=== PATIENT | female | born 1955 | race Caucasian/White ===

== ENCOUNTER 2016-03-27 17:09 | Emergency (ER) | payer MEDICARE ==
[2016-03-27 17:43] VITALS: BMI 44.6
--- NOTE | 2016-03-27 19:28 | EDPRACDOC ---
- General Chief Complaint: Fall Stated Complaint: FALL Time Seen by Provider: 03/27/16 19:11 Information Source: Patient - History of Present Illness Onset: 1 DAY HPI: PT FELL TODAY AND HIT THE BACK OF HER HEAD. THE PT SAID THAT SHE DOES NOT REMEMBER WHAT CAUSED HER TO FALL. PT COULD NOT GET UP AND HER KIDS COULD NOT PICK HER UP, SO THEY CALLED EMS. PT'S ONLY C/O IS THAT HER HEAD HURTS. FAMILY SAID THAT PT DID NOT HAVE A LOC. Pain Severity: Reports: Mild Injuries/Pain Location: Reports: head Reason for Fall: Reports: unknown Loss of Consciousness: no loss of consciousness Associated Symptoms (Fall): Reports: headache Allergies/Adverse Reactions: Allergies NÉSTOR Inhibitors Allergy (Severe, Verified 03/27/16 17:42) See Comments renal failure NSAIDS (Non-Steroidal Anti-Inflamma Allergy (Severe, Verified 03/27/16 17:42) See Comments renal failure codeine [Codeine] Allergy (Intermediate, Verified 03/27/16 17:42) Rash-Generalized hydroxyzine HCl [From Vistaril] Allergy (Unknown, Verified 03/27/16 17:42) Rash-Generalized hydroxyzine pamoate [From Vistaril] Allergy (Unknown, Verified 03/27/16 17:42) Rash-Generalized Penicillins Allergy (Unknown, Verified 03/27/16 17:42) Rash-Generalized tape Allergy (Uncoded 03/27/16 17:42) Itching Home Medications: Ambulatory Orders Fenofibrate Nanocrystallized [Tricor] 145 mg PO DAILY 04/06/12 Ezetimibe [Zetia] 10 mg PO DAILY 07/16/12 Insulin Glargine,Hum.rec.anlog [Lantus] 40 units SQ BID 07/16/12 Cholecalciferol (Vitamin D3) [Vitamin D3 (cholecalciferol)] 5,000 unit PO DAILY 10/01/12 Omeprazole [Prilosec] 20 mg PO BID 04/07/13 Sitagliptin Phosphate [Januvia] 100 mg PO DAILY 04/07/13 Atorvastatin Calcium [Lipitor] 80 mg PO QHS 10/04/13 Ranolazine [Ranexa] 500 mg PO BID #60 ext 10/06/13 Buspirone HCl 15 mg PO TID 02/12/15 Alendronate Sodium [Fosamax] 70 mg PO SANCHEZ 07/20/15 Cyanocobalamin (Vitamin B-12) [Cyanocobalamin Injection] 1,000 mcg IM QMONTH Insulin Aspart [Novolog] 8 - 18 units SQ TIDAC 07/20/15 Isosorbide Mononitrate [Isosorbide Mononitrate ER] 120 mg PO DAILY 07/20/15 Meclizine HCl [Antivert] 25 mg PO Q6H PRN 07/20/15 Metoprolol Succinate [Toprol Xl] 25 mg PO DAILY 07/20/15 Nitroglycerin [Nitrostat] 0.4 mg SL Q5MX3 PRN 07/20/15 Pioglitazone HCl [Actos] 15 mg PO DAILY 07/20/15 Promethazine [Phenergan] 25 mg PO Q6H PRN 07/20/15 Topiramate [Topamax] 200 mg PO QHS 07/20/15 Albuterol Sulfate [Ventolin Hfa] 1 - 2 puff INH Q4H PRN 11/13/15 Budesonide/Formoterol Fumarate [Symbicort 160-4.5 Mcg Inhaler] 2 puff INH BID Bupropion HCl [Bupropion HCl Sr] 100 mg PO DAILY 11/13/15 Furosemide [Lasix] 60 mg PO BID 11/13/15 Pregabalin [Lyrica] 50 mg PO BID 11/13/15 Albuterol/Ipratropium Neb [Duoneb] 3 ml NEB Q6H PRN #120 box 11/16/15 Rivaroxaban [Xarelto] 20 mg PO DAILY 11/22/15 Diazepam [Valium] 2 mg PO TID PRN 11/30/15 Escitalopram Oxalate [Lexapro] 20 mg PO DAILY 11/30/15 Hydrocodone Bit/Acetaminophen [[place] 10-325 Tablet] 1 tab PO Q6H PRN 11/30/15 ED Past Medical History - Patient Medical History Neurological History: Reports: Cerebrovascular Accident (TIA). Denies: Seizures Cardiac History: Reports: Coronary Artery Disease, Atrial Fibrillation, Hypertension, Congestive Heart Failure, Heart Attack, Cardiac Catheterization, Hypercholesterolemia, Syncope. Denies: CABG Respiratory History: Reports: COPD, Chronic Bronchitis, Pulmonary Embolism. Denies: Asthma, Emphysema GI/ History: Reports: Renal Disease (chronic stage 3), Urinary Tract Infection , Gastroesophageal Reflux, Ulcer. Denies: Renal Failure, Kidney Stones Musculoskeletal History: Reports: Arthritis (MULTIPLE JOINTS). Denies: Gout Psychological History: Reports: Depression, Anxiety. Denies: Schizophrenia, Substance Use Disorder Systemic History: Reports: Cancer (ENDOMETRIOSIS), Anemia (pernicious), Diabetes. Denies: Hyperthyroidism, Hypothyroidism Surgical History: Reports: Cholecystectomy, Hysterectomy, Angioplasty, Cardiac Catheterization, Tonsillectomy/Adnoidectomy. Denies: CABG, Hernia Surgery, Other - Family Medical History Reports: Hypertension (MOM, DAD, BROTHER(?)), Diabetes (DAD), Cancer (SISTER), Cardiac Disorders (MOM & DAD). Denies: Stroke - Social Medical History Smoking Status: Never smoker (But she was exposed to secondhand smoke for years. Has been lung ca) Social History: Denies: Substance Use Disorder ETOH: None Substance Abuse: None Lives In: Home EDM Review of Systems - Review of Systems ROS Negative Except as Marked: Yes All systems reviewed and were negative except as marked Neurological: Headache - Physical Exam Constitutional: Alert (Awake), No apparent distress Oriented to: Time, Person, Place Last recorded Vital Signs: Last Vital Signs Temp 97.7 F 03/27/16 17:38 Pulse 58 L 03/27/16 17:38 Resp 22 03/27/16 17:38 BP 176/72 03/27/16 17:38 Pulse Ox 95 03/27/16 17:38 Oxygen Pulse Oxygen Saturation 95 O2 Device Room Air Oxygen Flow Rate Fraction of Inspired Oxygen ( FIO2) - HEENT Head: Tender Eye Exam: Normal (PERRL, EOMI, Sclera white) Oropharynx: Normal (Pharynx:Moist without exudate,Gums-no swelling) ENT EAC: Normal TMJ: Normal Nose: No Symptoms Reported (septum midline) Neck: Normal (FROM, trachea at midline) - Respiratory/Cardiovascular Respiratory: Normal - CTA (BBS clear to auscultation without adventitious sounds ) Cardiovascular: Bradycardia - GI Auscultation: Normal (NABS) Palpation: Normal (Soft,No rebound or guarding, non distended) Tenderness: Non tender Moya's Sign: Negative - Musculoskeletal Back: Normal Extremities: Pedal Edema - Integumentary Skin: Normal, Warm, Dry Lymphatics: Normal (no adenopathy) - Neurologic Memory Impaired: Normal Motor Function: Normal (Normal tone, Pulses 2+ No cyanosis or edema, FROM) Cranial Nerve: Normal (CN II-X11 intact sensation, strength 5/5) Cerebellar: Normal Mood Description: Normal Thought: Coherent Perception: Normal - Re-evaluation Re-evaluation 1 Re-evaluation Time: 21:14 (IMPROVED) - Results 03/27/16 20:10 03/27/16 20:10 - EKG EKG #1 EKG Time: 19:31 -: Yes EKG interpreted by me Rate: bpm: 62 [place]: Normal Rhythm: NSR Block: None Hypertrophy: None ST: Normal - Diagnostic Imaging Chest Image interpreted by: Radiologist Normal chest radiograph. Head Image interpreted by: Radiologist Atrophy with small vessel disease, unchanged from prior study. No intracranial mass, hemorrhage, or extra-axial fluid collection. No acute infarct evident. Decision Time to Discharge: 21:14 - Departure Yes I personally saw and evaluated the patient. Disposition: Home Condition: Fair Final Diagnosis: Accidental fall, Head contusion Instructions: RICE: Routine Care for Injuries Education/Counseling Given To: Patient Education/Counseling Given Regarding: Diagnosis, Treatment, Follow Up Additional Instructions: F/U WITH PCP
--- NOTE | 2016-03-27 19:31 | DIRPT ---
CLINICAL DATA: Chest pain, presumed cardiac EXAM: PORTABLE CHEST 1 VIEW COMPARISON: 11/22/2015 FINDINGS: Normal mediastinum and cardiac silhouette. Normal pulmonary vasculature. No evidence of effusion, infiltrate, or pneumothorax. No acute bony abnormality. IMPRESSION: Normal chest radiograph. Electronically Signed By: Hayes Gaviria M.D. On: 03/27/2016 19:29
[2016-03-27 20:33] LABS: BLOOD UREA NITROGEN 28 MG/DL (7-17); CALC CORRECTED 9.1 MG/DL (8.4-10.2); CALCULATED OSMOLALITY 273 MOs/Kg (270-290); CHLORIDE 104 mEq/L (98-107); GLUCOSE 84 MG/DL (70-99); SODIUM LEVEL 139 mEq/L (137-146); TOTAL PROTEIN 7.3 G/DL (6.3-8.2)
[2016-03-27 20:36] LABS: AUTOMATED BASOPHIL 0.5 % (0-2); AUTOMATED EOSINOPHIL 1.6 % (0-5); AUTOMATED LYMPH 45.3 % (17-44); AUTOMATED MONOCYTE 8.7 % (3-10); AUTOMATED NEUTROPHIL 43.9 % (45-76); MPV 10.9 fL (7.4-10.4)
--- NOTE | 2016-03-27 20:41 | DIRPT ---
CLINICAL DATA: Pain following fall ; dizziness EXAM: CT HEAD WITHOUT CONTRAST TECHNIQUE: Contiguous axial images were obtained from the base of the skull through the vertex without intravenous contrast. COMPARISON: July 20, 2015 FINDINGS: There is mild diffuse atrophy. There is no intracranial mass hemorrhage, extra-axial fluid collection, or midline shift. There is stable small vessel disease in the centra semiovale bilaterally. There is no new de dios-white compartment lesion. No acute infarct evident. The bony calvarium appears intact. The mastoid air cells are clear. No intraorbital lesions are identified. IMPRESSION: Atrophy with small vessel disease, unchanged from prior study. No intracranial mass, hemorrhage, or extra-axial fluid collection. No acute infarct evident. Electronically Signed By: Davis Kapoor III, M.D. On: 03/27/2016 20:39
[2016-03-27 20:42] LABS: PARTIAL THROMB. TIME 28.4 SEC (22-35); PT-INR 1.4
[2016-03-27 21:12] LABS: LEUKOCYTES/URINE NEG (NEGATIVE); NITRITE/URINE NEG (NEGATIVE); URINE OCCULT BLOOD NEG (NEG/TRACE); WBC/URINE 0-2 (0-5)
[2016-03-27 21:55] VITALS: BP 151/72; PULSE 64; TEMP 97.4
== END 2016-03-27 21:40 | disposition home or self-care (01) ==
LOC: ED 17:09
DX: S00.93XA Contusion of unspecified part of head, initial encounter (principal); W19.XXXA Unspecified fall, initial encounter; I25.10 Atherosclerotic heart disease of native coronary artery without angina pectoris; I48.91 Unspecified atrial fibrillation; I50.9 Heart failure, unspecified; E78.00 Pure hypercholesterolemia, unspecified; J44.9 Chronic obstructive pulmonary disease, unspecified; I12.9 Hypertensive chronic kidney disease with stage 1 through stage 4 chronic kidney disease, or unspecified chronic kidney disease; N18.3 Chronic kidney disease, stage 3 (moderate); E11.9 Type 2 diabetes mellitus without complications; Z79.01 Long term (current) use of anticoagulants; Z79.899 Other long term (current) drug therapy; Z79.4 Long term (current) use of insulin
CPT/HCPCS: 36415; 70450; 71010; 80053; 81001; 83880; 84484; 85025; 85610; 85730; 93005; 99284

== ENCOUNTER 2016-04-02 19:37 | Inpatient (IN) | payer MEDICARE ==
[2016-04-02] MEDS ORDERED: NS 1,000 ML IV ONE (21:36)
[2016-04-02 21:56] LABS: AUTOMATED BASOPHIL 1.1 % (0-2); AUTOMATED EOSINOPHIL 2.2 % (0-5); AUTOMATED LYMPH 45.4 % (17-44); AUTOMATED MONOCYTE 7.9 % (3-10); AUTOMATED NEUTROPHIL 43.4 % (45-76)
--- NOTE | 2016-04-02 21:56 | DIRPT ---
CLINICAL DATA: Shortness of breath. EXAM: PORTABLE CHEST 1 VIEW COMPARISON: 03/27/2016 FINDINGS: The heart size and mediastinal contours are within normal limits. Both lungs are clear. The visualized skeletal structures are unremarkable. IMPRESSION: No active disease. Electronically Signed By: Leatha Brandt M.D. On: 04/02/2016 21:53
--- NOTE | 2016-04-02 21:57 | EDPRACDOC ---
- General Information Chief Complaint: Altered Mental Status Stated Complaint: ALTERED MENTAL STATUS Time Seen by Provider: 04/02/16 21:30 Information Source: Patient, Family Home Medications: Home Medications Fenofibrate Nanocrystallized [Tricor] 145 mg PO DAILY 04/06/12 Ezetimibe [Zetia] 10 mg PO DAILY 07/16/12 Insulin Glargine,Hum.rec.anlog [Lantus] 50 units SQ BID 07/16/12 Cholecalciferol (Vitamin D3) [Vitamin D3 (cholecalciferol)] 5,000 unit PO DAILY 10/01/12 Omeprazole [Prilosec] 20 mg PO BID 04/07/13 Sitagliptin Phosphate [Januvia] 100 mg PO DAILY 04/07/13 Atorvastatin Calcium [Lipitor] 80 mg PO QHS 10/04/13 Ranolazine [Ranexa] 500 mg PO BID #60 ext 10/06/13 Buspirone HCl 15 mg PO TID 02/12/15 Alendronate Sodium [Fosamax] 70 mg PO SANCHEZ 07/20/15 Cyanocobalamin (Vitamin B-12) [Cyanocobalamin Injection] 1,000 mcg IM QMONTH Insulin Aspart [Novolog] 8 - 18 units SQ TIDAC 07/20/15 Isosorbide Mononitrate [Isosorbide Mononitrate ER] 120 mg PO DAILY 07/20/15 Meclizine HCl [Antivert] 25 mg PO Q6H PRN 07/20/15 Metoprolol Succinate [Toprol Xl] 25 mg PO DAILY 07/20/15 Nitroglycerin [Nitrostat] 0.4 mg SL Q5MX3 PRN 07/20/15 Promethazine [Phenergan] 25 mg PO Q6H PRN 07/20/15 Topiramate [Topamax] 200 mg PO QHS 07/20/15 Budesonide/Formoterol Fumarate [Symbicort 160-4.5 Mcg Inhaler] 2 puff INH BID Bupropion HCl [Bupropion HCl Sr] 100 mg PO DAILY 11/13/15 Furosemide [Lasix] 60 mg PO BID 11/13/15 Pregabalin [Lyrica] 50 mg PO BID 11/13/15 Albuterol/Ipratropium Neb [Duoneb] 3 ml NEB Q6H PRN #120 box 11/16/15 Rivaroxaban [Xarelto] 20 mg PO DAILY 11/22/15 Escitalopram Oxalate [Lexapro] 20 mg PO DAILY 11/30/15 Hydrocodone Bit/Acetaminophen [[place] 10-325 Tablet] 1 tab PO Q6H PRN 11/30/15 Albuterol Sulfate MDI [Proventil HFA] 1 - 2 puff INH Q4-6H PRN 04/02/16 Alprazolam [Xanax] 0.5 mg PO TID 04/02/16 Oxybutynin Chloride 5 mg PO BID 04/02/16 Pregabalin [Lyrica] 25 mg PO BID 04/02/16 Tizanidine HCl [Zanaflex] 4 mg PO BID 04/02/16 Allergies/Adverse Reactions: Allergies Allergy/AdvReac Type Severity Reaction Status Date / Time NÉSTOR Inhibitors Allergy Severe See Verified 03/27/16 17:42 Comments NSAIDS (Non-Steroidal Allergy Severe See Verified 03/27/16 17:42 Anti-Inflamma Comments codeine [Codeine] Allergy Intermediate Rash-Genera Verified 03/27/16 17:42 lized hydroxyzine HCl Allergy Unknown Rash-Genera Verified 03/27/16 17:42 [From Vistaril] lized hydroxyzine pamoate Allergy Unknown Rash-Genera Verified 03/27/16 17:42 [From Vistaril] lized Penicillins Allergy Unknown Rash-Genera Verified 03/27/16 17:42 lized latex Allergy Rash-Genera Uncoded 04/02/16 20:05 lized tape Allergy Itching Uncoded 03/27/16 17:42 - History of Present Illness Onset: today Exact Onset of Symptoms: Unknown Date Symptoms Started: 04/02/16 HPI: PATIENT PRESENTS WITH FAMILY C/O GENERAL FATIGUE AND SLUGGISH APPEARANCE SINCE NOON TODAY. FAMILY NOTES NAUSEA AND VOMITING 2 DAYS AGO. NONE TODAY. NO SOB. NO FEVER. NO DIARRHEA. DENIES TRAUMA. Symptoms began: Gradually Duration: Since Onset Symptoms Currently: Reports: Still Present Altered Quality: Reports: Decreased Alertness, Confusion Altered Severity: Reports: Mild Associated signs and symptoms: Reports: Weakness ED Past Medical History - History Reviewed Yes Nurses notes reviewed and agree except as marked Travel Outside of [place] in the Last 3 Months?: No - Patient Medical History Neurological History: Reports: Cerebrovascular Accident (TIA). Denies: Seizures Cardiac History: Reports: Coronary Artery Disease, Atrial Fibrillation, Hypertension, Congestive Heart Failure, Heart Attack (2 stents), Cardiac Catheterization, Hypercholesterolemia, Syncope. Denies: CABG Respiratory History: Reports: Asthma, COPD, Chronic Bronchitis, Pulmonary Embolism. Denies: Emphysema GI/ History: Reports: Renal Disease (chronic stage 3), Urinary Tract Infection , Gastroesophageal Reflux, Ulcer. Denies: Renal Failure, Kidney Stones Musculoskeletal History: Reports: Arthritis. Denies: Gout Psychological History: Reports: Depression, Anxiety. Denies: Schizophrenia, Substance Use Disorder Systemic History: Reports: Anemia (pernicious), Diabetes. Denies: Cancer, Hyperthyroidism, Hypothyroidism Surgical History: Reports: Appendectomy, Cholecystectomy, Hysterectomy, Angioplasty, Cardiac Catheterization, Tonsillectomy/Adnoidectomy. Denies: CABG , Hernia Surgery, Other - Family Medical History Reports: Hypertension (MOM, DAD, BROTHER(?)), Diabetes (DAD), Cancer (SISTER), Cardiac Disorders (MOM & DAD). Denies: Stroke - Social Medical History Smoking Status: Never smoker (But she was exposed to secondhand smoke for years. Has been lung ca) Social History: Denies: Substance Use Disorder Lives With: Family Lives In: Home EDM Review of Systems - Review of Systems ROS Negative Except as Marked: Yes All systems reviewed and were negative except as marked Constitutional: Fatigue. negative: Chills, Fever, Loss of Appetite, Weakness Eyes: No Symptoms Reported. negative: Redness, Blurred Vision, Double Vision, Discharge, Pain, Light Sensitive, Photophobia Ears: No Symptoms Reported. negative: Pain, Hearing Loss, Drainage, Ear Pulling Throat: No Symptoms Reported. negative: Pain, Swelling Nose: No Symptoms Reported. negative: Congestion, Bleeding, Discharge, Injection, Swelling, Deformity, Ecchymosis, Tender, Abrasion, Laceration Mouth: No Symptoms Reported. negative: Pain, Drooling Respiratory: No Symptoms Reported. negative: Cough, Brassy Cough, Barky Cough, Shortness of Breath, Wheezing, Hemoptysis Cardiovascular: No Symptoms Reported. negative: Chest Pain, Palpitations, Syncope, Edema, Orthopnea, PND, Skin Mottling, Cyanosis Gastrointestinal: No Symptoms Reported. negative: Pain, Constipation, Nausea, Vomiting, Diarrhea, Melena, Formula Intolerance Genitourinary: No Symptoms Reported. negative: Dysuria, Hematuria, Frequency, Discharge, Bleeding, Testicular Pain, Neurological: No Symptoms Reported. negative: Headache, Dizziness, Seizure, Numbness, Weakness, Speech Difficulty, Gait Difficulty Musculoskeletal: No Symptoms Reported. negative: Neck, Chestwall, Ribs, Back, Shoulder, Arm, Elbow, Forearm, Wrist, Hand, Pelvis, Hip, Femur, Knee, Leg, Ankle , Foot Integumentary: No Symptoms Reported. negative: Itching, Rash, Bruising, Wound Allergic/Immunologic: No Symptoms Reported. negative: Hives, Itching Hematologic: No Symptoms Reported. negative: Lymphadenopathy, Easy Bruising, Easy Bleeding Endocrine: No Symptoms Reported. negative: Weight Gain, Weight Loss Psychiatric: No Symptoms Reported. negative: Anxiety, Depression, Hallucinations, Insomnia, Suicidal - Physical Exam Constitutional: Alert (Awake), Confused (SLUGGISH TO RESPOND) Oriented to: Person, Place Last recorded Vital Signs: Last Vital Signs Temp 97.3 F L 04/02/16 19:55 Pulse 82 04/02/16 19:55 Resp 20 04/02/16 19:55 BP 127/85 04/02/16 19:55 Pulse Ox 96 04/02/16 19:55 Oxygen Pulse Oxygen Saturation 96 O2 Device Room Air Oxygen Flow Rate Fraction of Inspired Oxygen ( FIO2) - HEENT Head: Normal ( normocephalic) Eye Exam: Normal (PERRL, EOMI, Sclera white) Oropharynx: Normal (Pharynx:Moist without exudate,Gums-no swelling) Tympanic Membrane: Normal ENT EAC: Normal TMJ: Normal Nose: No Symptoms Reported (septum midline) Neck: Normal (FROM, trachea at midline) - Respiratory/Cardiovascular Respiratory: Normal - CTA (BBS clear to auscultation without adventitious sounds ) Cardiovascular: Normal (RRR without murmur, gallop or rub) - GI Auscultation: Normal (NABS) Palpation: Normal (Soft,No rebound or guarding, non distended) Tenderness: Non tender Moya's Sign: Negative - Bladder: Normal - Musculoskeletal Back: Normal (Non-Tender) Extremities: Normal (Normal tone, Pulses 2+ No cyanosis or edema, FROM) - Integumentary Skin: Normal, Warm, Dry Lymphatics: Normal (no adenopathy) - Neurologic Memory Impaired: Unable to Test Motor Function: Normal (Normal tone, Pulses 2+ No cyanosis or edema, FROM) Cranial Nerve: Normal (CN II-X11 intact sensation, strength 5/5) Cerebellar: Normal Mood Description: Flat Perception: Normal - Results 04/02/16 21:35 04/02/16 21:24 POC Capillary Glucose 92 MG/DL (70-99) 04/02/16 19:55 Lab Results 04/02/16 19:55 POC Capillary Glucose 92 - EKG EKG #1 EKG Time: 21:51 -: Yes EKG interpreted by me Rate: bpm: 67 [place]: Normal Rhythm: NSR Block: None Hypertrophy: None ST: Normal - Departure Yes I personally saw and evaluated the patient. Disposition: Admit IP To This Hospital Condition: Fair Final Diagnosis: Dehydration, Acute delirium UTI (urinary tract infection) Qualifiers: Urinary tract infection type: acute cystitis Hematuria presence: without hematuria Qualified Code(s): N30.00 - Acute cystitis without hematuria Instructions: Urinary Tract Infection in Women (ED), Dysuria Education/Counseling Given To: Patient Education/Counseling Given Regarding: Diagnosis, Treatment, Prognosis Referrals: Matti Arellano MD [Primary Care Provider] - One Week Decision to Admit Time: 23:04 Decision to admit date: 04/02/16 Decision to admit: from ED - Physician Consulted Hospitalist Time Called: 23:04 Provider Called: Jake Houser Time Chief Technologist Returned Call: 23:04 NIH Stroke Scale Initial Evaluation Level of Consciousness: Arousable LOC- Question: Answers Both Correctly LOC Commands: Both Task Correctly Best Gaze: Normal Visual: No Visual Loss Facial Palsy: Normal Movement Motor Arm LEFT: No Drift Motor Arm RIGHT: No Drift Motor Leg LEFT: No Drift Motor Leg RIGHT: No Drift Limb Ataxia: Absent Sensory: Normal Best Language: No Aphasia Dysarthria: Normal Extinction and Inattention: No Abnormality (Neglect) Score: 1out of42
[2016-04-02 22:10] LABS: BLOOD UREA NITROGEN 19 MG/DL (7-17); CALCIUM 9.7 MG/DL (8.4-10.2); CALCULATED OSMOLALITY 271 MOs/Kg (270-290); CHLORIDE 106 mEq/L (98-107); GLUCOSE 100 MG/DL (70-99); PARTIAL THROMB. TIME 18.2 SEC (22-35); PT-INR 1.1; SODIUM LEVEL 140 mEq/L (137-146)
[2016-04-02 22:16] LABS: ALL NEG? NO
[2016-04-02 22:24] LABS: MDMA* NEG (NEGATIVE); METHAMPHETAMINES NEG (NEGATIVE); OXYCODONE NEG (NEGATIVE)
[2016-04-02 22:33] LABS: LEUKOCYTES/URINE TRACE (NEGATIVE); NITRITE/URINE NEG (NEGATIVE); URINE OCCULT BLOOD NEG (NEG/TRACE)
--- NOTE | 2016-04-02 22:34 | DIRPT ---
CLINICAL DATA: 60-year-old female with altered mental status go EXAM: CT HEAD WITHOUT CONTRAST TECHNIQUE: Contiguous axial images were obtained from the base of the skull through the vertex without intravenous contrast. COMPARISON: Head CT dated 03/27/2016 FINDINGS: The ventricles are dilated and the sulci are prominent compatible with age-related atrophy. Periventricular and deep white matter hypodensities represent chronic microvascular ischemic changes. There is no intracranial hemorrhage. No mass effect or midline shift identified. The visualized paranasal sinuses and mastoid air cells are well aerated. The calvarium is intact. IMPRESSION: No acute intracranial hemorrhage. Age-related atrophy and chronic microvascular ischemic disease. If symptoms persist and there are no contraindications, MRI may provide better evaluation if clinically indicated. Electronically Signed By: Josh Courtney M.D. On: 04/02/2016 22:31
[2016-04-02] MEDS ORDERED: OXYCODONE HCL 5 MG TABLET PO ONE (23:02)
[2016-04-02] MEDS ORDERED: Levofloxacin 750 mg/150 ml D5W 750 MG/150 ML RTU IV ONE (23:05)
--- NOTE | 2016-04-02 23:39 | HISTPHYS ---
- Chief Complaint altered mental status - History of Present Illness PRIMARY CARE PROVIDER: Dr. Arellano HPI: The patient is a 60 yo woman with multiple medical problems including coronary artery disease, pulmonary embolism (with IVC filter now in place), right sided heart failure, diabetes mellitus, depression, who presents with altered mental status. The patient states she cannot remember why she is here. The patient is having trouble providing history, so most of the history is provided by her son and daughter in law. Lately has been staying in bed x 2 or more days. She does get in moods and suffers from depression. She is not eating and not taking her medication. Last food was yesterday morning when she ate a mayonnaise sandwich and some chips. At first they thought she was just having worsening depression, but then today, she had new symptoms she has never had before. She woke up this afternoon and did not know where she was or who anybody was. She did not know her son or daughter in law. She says she sees Balwinder, her who . She has become confused and disoriented with hallucinations. Onset: Some symptoms started 2 days ago but the confusion and hallucinations started today. Duration: intermittent. Location: generalized. Character: not recognizing people she knows. Disorientation. Hallucination. Alleviated by: Nothing. Exacerbated by: Nothing. Associated Symptoms: Decreased appetite and decreased PO intake. No fever or chills. Has baseline shortness of breath but not worse than usual. Hypersomnolence. Fatigue. Denies suicidal ideation. Treatments: none at home except usual medications. She has not been taking her medications. - Medical History Cardiac History: Reports: Coronary Artery Disease, Atrial Fibrillation, Hypertension, Congestive Heart Failure, Heart Attack (2 stents), Cardiac Catheterization, Hypercholesterolemia, Syncope. Denies: CABG Respiratory History: Reports: Asthma, COPD, Chronic Bronchitis, Pulmonary Embolism (November 2015) GI/ History: Reports: Renal Disease (chronic stage 3), Urinary Tract Infection , Gastroesophageal Reflux, Ulcer Musculoskeletal History: Reports: Arthritis Systemic History: Reports: Anemia (pernicious), Diabetes Neurological History: Reports: Cerebrovascular Accident (TIA). Denies: Seizures Psychological History: Reports: Depression, Anxiety - Surgical History Reports: Appendectomy, Cholecystectomy, Hysterectomy, Angioplasty, Cardiac Catheterization, Tonsillectomy/Adnoidectomy, Other (IVC filter around November 2015) - Medictions/Allergies Allergies NÉSTOR Inhibitors Allergy (Severe, Verified 03/27/16 17:42) See Comments renal failure NSAIDS (Non-Steroidal Anti-Inflamma Allergy (Severe, Verified 03/27/16 17:42) See Comments renal failure codeine [Codeine] Allergy (Intermediate, Verified 03/27/16 17:42) Rash-Generalized hydroxyzine HCl [From Vistaril] Allergy (Unknown, Verified 03/27/16 17:42) Rash-Generalized hydroxyzine pamoate [From Vistaril] Allergy (Unknown, Verified 03/27/16 17:42) Rash-Generalized Penicillins Allergy (Unknown, Verified 03/27/16 17:42) Rash-Generalized latex Allergy (Uncoded 04/02/16 20:05) Rash-Generalized tape Allergy (Uncoded 03/27/16 17:42) Itching Current Medication List: Reviewed Home Medications Fenofibrate Nanocrystallized [Tricor] 145 mg PO DAILY 04/06/12 Ezetimibe [Zetia] 10 mg PO DAILY 07/16/12 Insulin Glargine,Hum.rec.anlog [Lantus] 50 units SQ BID 07/16/12 Cholecalciferol (Vitamin D3) [Vitamin D3 (cholecalciferol)] 5,000 unit PO DAILY 10/01/12 Omeprazole [Prilosec] 20 mg PO BID 04/07/13 Sitagliptin Phosphate [Januvia] 100 mg PO DAILY 04/07/13 Atorvastatin Calcium [Lipitor] 80 mg PO QHS 10/04/13 Ranolazine [Ranexa] 500 mg PO BID #60 ext 10/06/13 Buspirone HCl 15 mg PO TID 02/12/15 Alendronate Sodium [Fosamax] 70 mg PO SANCHEZ 07/20/15 Cyanocobalamin (Vitamin B-12) [Cyanocobalamin Injection] 1,000 mcg IM QMONTH Insulin Aspart [Novolog] 8 - 18 units SQ TIDAC 07/20/15 Isosorbide Mononitrate [Isosorbide Mononitrate ER] 120 mg PO DAILY 07/20/15 Meclizine HCl [Antivert] 25 mg PO Q6H PRN 07/20/15 Metoprolol Succinate [Toprol Xl] 25 mg PO DAILY 07/20/15 Nitroglycerin [Nitrostat] 0.4 mg SL Q5MX3 PRN 07/20/15 Promethazine [Phenergan] 25 mg PO Q6H PRN 07/20/15 Topiramate [Topamax] 200 mg PO QHS 07/20/15 Budesonide/Formoterol Fumarate [Symbicort 160-4.5 Mcg Inhaler] 2 puff INH BID Bupropion HCl [Bupropion HCl Sr] 100 mg PO DAILY 11/13/15 Furosemide [Lasix] 60 mg PO BID 11/13/15 Pregabalin [Lyrica] 50 mg PO BID 11/13/15 Albuterol/Ipratropium Neb [Duoneb] 3 ml NEB Q6H PRN #120 box 11/16/15 Rivaroxaban [Xarelto] 20 mg PO DAILY 11/22/15 Escitalopram Oxalate [Lexapro] 20 mg PO DAILY 11/30/15 Hydrocodone Bit/Acetaminophen [[place] 10-325 Tablet] 1 tab PO Q6H PRN 11/30/15 Albuterol Sulfate MDI [Proventil HFA] 1 - 2 puff INH Q4-6H PRN 04/02/16 Alprazolam [Xanax] 0.5 mg PO TID 04/02/16 Oxybutynin Chloride 5 mg PO BID 04/02/16 Pregabalin [Lyrica] 25 mg PO BID 04/02/16 Tizanidine HCl [Zanaflex] 4 mg PO BID 04/02/16 - Family History Reports: Hypertension (MOM, DAD, BROTHER(?)), Diabetes (DAD), Cancer (SISTER), Cardiac Disorders (MOM & DAD). Denies: Stroke - Social History Smoking Status: Never smoker (But she was exposed to secondhand smoke for years. ) Social History: Denies: Alcohol Use, Substance Use Disorder - Review of Systems GENERAL: No Fever, chills, or diaphoresis. Positive for fatigue/malaise. HEENT: No nasal discharge or bleeding. No throat pain or swelling. No eye pain or eye redness. RESPIRATORY: No new cough, wheezing. Has baseline shortness of breath but not worse than usual. CARDIOVASCULAR: No chest pain or palpitations. GI: No abdominal pain, nausea, vomiting, diarrhea, constipation, or bloody stool. NEUROLOGICAL: No headache or focal weakness. INTEGUMENT: no rashes, itching, or lesions. LYMPHATIC SYSTEM: no lymph node swelling or pain. MUSCULOSKELETAL: no new pain or joint swelling. GENITOURINARY: No dysuria or hematuria. ENDOCRINE: No polyuria or polydipsia. HEME: No chronic anemia, bleeding, or easy bruising. - Physical Exam Vital Signs: Initial Vitals Temperature 97.3 F L 04/02/16 19:55 Pulse Rate 82 04/02/16 19:55 Respiratory Rate 20 04/02/16 19:55 Blood Pressure 127/85 04/02/16 19:55 Pulse Oxygen Saturation 96 04/02/16 19:55 Weight: 99 kg Height: 4'11" BMI: 44 - Other Exam Other Exam Findings: GENERAL: Ill-appearing, morbidly obese, in acute distress. HEENT: Normocephalic, atraumatic; pupils equal and round. Nares patent, without discharge or bleeding. No oropharyngeal lesions or erythema. Mucous membranes are dry. NECK: is supple, no masses, trachea midline. Large neck circumference. RESPIRATORY: Clear to auscultation bilaterally. Chest wall movements are symmetric. No use of accessory muscles to breathe. No wheezing, rales, rhonchi. Decreased breath sounds in the bases bilaterally. CARDIOVASCULAR: Normal S1, S2. No murmurs, rubs, or gallops. PMI non-displaced. Carotids: no carotid bruits. No bradycardia or tachycardia. DP pulses 2+ bilaterally. GI: soft, nontender, non-distended, normal active bowel sounds. No hepatosplenomegaly. INTEGUMENT: Clean, dry, and intact. No rashes. No lesions. MUSCULOSKELETAL: Moving all extremities. No cyanosis. No clubbing. Edema: trace pitting lower extremity edema bilaterally. Also bilateral lymphedema. NEUROLOGICAL: Cranial nerves 2-12 grossly intact. Motor 4/5 throughout upper extremities and 3-4/5 in lower extremities, symmetric. Reflexes: 2+ bilaterally. Babinski: toes nonreactive bilaterally. Intact Finger to nose. Sensory grossly intact to light touch. Intact rapid alternating movements bilaterally. No pronator drift. PSYCHIATRIC: Oriented to person and place. Not oriented to month, year, date. Flat affect. Confused. LYMPHATIC: No cervical lymphadenopathy. No supraclavicular lymphadenopathy. - Lab Results Laboratory Results - last 24 hr 04/02/16 04/02/16 04/02/16 19:55 21:24 21:24 WBC RBC Hgb Hct MCV MCH MCHC RDW Plt Count MPV Neut % (Auto) Lymph % (Auto) [place] % (Auto) Eos % (Auto) Baso % (Auto) Absolute Neuts (auto) Absolute Lymphs (auto) ESR PT 11.2 INR 1.1 APTT 18.2 L Sodium 140 Potassium 3.8 Chloride 106 Carbon Dioxide 24 Anion Gap 14 BUN 19 H Creatinine 1.30 H Estimated GFR (MDRD) 42 L Glucose 100 H POC Capillary Glucose 92 Calculated Osmolality 271 Calcium 9.7 Total Bilirubin 1.1 AST 38 H ALT 37 Alkaline Phosphatase 49 L Troponin I < 0.01 Total Protein 7.0 Albumin 4.0 TSH Urine Color Urine Clarity Urine pH Ur Specific [place] Urine Protein Urine Glucose (UA) Urine Ketones Urine Occult Blood Urine Nitrite Urine Bilirubin Urine Urobilinogen Ur Leukocyte Esterase Urine WBC Ur Epithelial Cells Urine Mucus Urine Opiates Screen Ur Oxycodone Screen Urine Methadone Screen Ur Barbiturates Screen Ur Tricyclics Screen Ur Phencyclidine Scrn Ur Amphetamines Screen U Methamphetamines Scrn Urine MDMA Screen U Benzodiazepines Scrn Urine Cocaine Screen Ur THC Screen 04/02/16 04/02/16 04/02/16 21:35 22:00 22:00 WBC 6.9 RBC 3.69 L Hgb 12.1 Hct 36.3 MCV 98 MCH 32.7 H MCHC 33.3 RDW 16.7 H Plt Count 151 MPV 11.0 H Neut % (Auto) 43.4 L Lymph % (Auto) 45.4 H [place] % (Auto) 7.9 Eos % (Auto) 2.2 Baso % (Auto) 1.1 Absolute Neuts (auto) 2.97 Absolute Lymphs (auto) 3.11 ESR PT INR APTT Sodium Potassium Chloride Carbon Dioxide Anion Gap BUN Creatinine Estimated GFR (MDRD) Glucose POC Capillary Glucose Calculated Osmolality Calcium Total Bilirubin AST ALT Alkaline Phosphatase Troponin I Total Protein Albumin TSH Urine Color Yellow Urine Clarity Sl cldy Urine pH 6.0 Ur Specific [place] 1.025 Urine Protein Neg Urine Glucose (UA) Neg Urine Ketones 1+ H Urine Occult Blood Neg Urine Nitrite Neg Urine Bilirubin Neg Urine Urobilinogen <2.0 Ur Leukocyte Esterase Trace H Urine WBC 5-10 H Ur Epithelial Cells 2+ Urine Mucus Mod H Urine Opiates Screen *positive* H Ur Oxycodone Screen Neg Urine Methadone Screen Neg Ur Barbiturates Screen Neg Ur Tricyclics Screen Neg Ur Phencyclidine Scrn Neg Ur Amphetamines Screen Neg U Methamphetamines Scrn Neg Urine MDMA Screen Neg U Benzodiazepines Scrn Neg Urine Cocaine Screen Neg Ur THC Screen Neg - Diagnostic Findings EK bpm. Normal sinus rhythm. Possible anterolateral infarct, age undetermined. T wave inversion in 3. Flat T waves in aVF, V3, V4, V5, and V6. Reviewed EKG personally. Chest x-ray, viewed personally: PORTABLE CHEST 1 VIEW COMPARISON: 03/27/2016 FINDINGS: The heart size and mediastinal contours are within normal limits. Both lungs are clear. The visualized skeletal structures are unremarkable. IMPRESSION: No active disease. Head CT: CT HEAD WITHOUT CONTRAST TECHNIQUE: Contiguous axial images were obtained from the base of the skull through the vertex without intravenous contrast. COMPARISON: Head CT dated 03/27/2016 FINDINGS: The ventricles are dilated and the sulci are prominent compatible with age-related atrophy. Periventricular and deep white matter hypodensities represent chronic microvascular ischemic changes. There is no intracranial hemorrhage. No mass effect or midline shift identified. The visualized paranasal sinuses and mastoid air cells are well aerated. The calvarium is intact. IMPRESSION: No acute intracranial hemorrhage. Age-related atrophy and chronic microvascular ischemic disease. If symptoms persist and there are no contraindications, MRI may provide better evaluation if clinically indicated. - Assessment (1) Metabolic encephalopathy G93.41 - METABOLIC ENCEPHALOPATHY Acute Present on Admission: Yes Patient with multiple medical problems now with altered mental status, including disorientation, not recognizing family, and hallucinations. Could be due to worsening depression with psychotic features, but could also be due to another cause, including TIA or CVA. Plan: Telemetry. Neuro checks. MRI head. Search for underlying causes. (2) Type 2 diabetes mellitus with hyperglycemia E11.65 - TYPE 2 DIABETES MELLITUS WITH HYPERGLYCEMIA Acute Present on Admission: Yes Plan: Hold oral diabetes medications. Check fingerstick blood sugars q ac and hs. Sliding scale insulin. Ordered A1c and urine microalbumin. (3) Major depressive disorder with psychotic features F32.3 - MAJOR DEPRESSV DISORD, SINGLE EPSD, SEVERE W PSYCH FEATURES Acute Present on Admission: Yes Qualifiers: Active/Remission status: currently active Major depression episode severity : severe Patient denies suicidal ideation. Appears depressed. Altered mental status could be due to depression or other cause. Plan: Restart home medications for depression. Will need follow up with her primary care physician and a mental health provider. (4) COPD (chronic obstructive pulmonary disease) J44.9 - CHRONIC OBSTRUCTIVE PULMONARY DISEASE, UNSPECIFIED Acute Present on Admission: Yes Does not appear to have an exacerbation on admission. Plan: Duonebs and albuterol. Monitor lung exam. (5) Pulmonary thromboembolism I26.99 - OTHER PULMONARY EMBOLISM WITHOUT ACUTE COR PULMONALE Chronic Present on Admission: Yes 11/14/15: Patient getting Xarelto for her pulmonary embolus and DVT. Appreciate Dr. Sinclair's input stating that she may benefit from an IVC filter. UPDATE 03/2016: Patient continues on anticoagulation. She has an IVC filter in place. Case Care Discussed with: Patient, Family, Nursing Staff
[2016-04-03] MEDS ORDERED: MECLIZINE 25 MG TAB PO PRN (00:10)
[2016-04-03] MEDS ORDERED: GLARGINE INSULIN (LANTUS) 100 UNITS/ML PEN SQ SCH (01:00)
[2016-04-03] MEDS ORDERED: ALBUTEROL 0.083% 3 ML NEB NEB SCH (02:00)
[2016-04-03] MEDS ORDERED: Vaccine Screening Complete SCH (02:00)
[2016-04-03] MEDS ORDERED: PROMETHAZINE 25 MG/ML VIAL IV PRN (02:27)
[2016-04-03] MEDS ORDERED: ACETAMINOPHEN 325 MG/TAB TABLET PO PRN (02:27)
[2016-04-03] MEDS ORDERED: SENNA CONCENTRATE TAB PO PRN (02:27)
[2016-04-03] MEDS ORDERED: ONDANSETRON HCL 4 MG/2 ML VIAL IV PRN (02:27)
[2016-04-03] MEDS ORDERED: ALBUTEROL 0.083% 3 ML NEB NEB PRN (02:27)
[2016-04-03] MEDS ORDERED: SIMETHICONE 80 MG TAB PO PRN (02:27)
[2016-04-03] MEDS ORDERED: TEMAZEPAM 15 MG CAP PO PRN (02:27)
[2016-04-03] MEDS ORDERED: ACETAMINOPHEN 325 MG SUPP PR PRN (02:27)
[2016-04-03] MEDS ORDERED: Aluminum;Magnesium;Simethicone 30 ML UDC PO PRN (02:27)
[2016-04-03] MEDS ORDERED: GUAIFEN 100 MG-DEXTROMETH 10 MG PER 5 ML PO PRN (02:27)
[2016-04-03] MEDS ORDERED: DEXTROSE 25 GM/50 ML PFS IV PRN (02:27)
[2016-04-03] MEDS ORDERED: BENZONATATE 100 MG PERLES PO PRN (02:27)
[2016-04-03] MEDS ORDERED: GLUCOSE (ORAL GEL) 15 GM TUBE PO PRN (02:27)
[2016-04-03] MEDS ORDERED: BISACODYL 5 MG TAB PO PRN (02:27)
[2016-04-03] MEDS ORDERED: GLUCAGON 1 MG VIAL SQ PRN (02:27)
[2016-04-03] MEDS: NS 1,000 ML IV SCH ×2 (03:37→20:13)
[2016-04-03 04:02] LABS: MPV 10.4 fL (7.4-10.4)
[2016-04-03 04:06] LABS: BLOOD UREA NITROGEN 18 MG/DL (7-17); CALCIUM 9.1 MG/DL (8.4-10.2); CALCULATED OSMOLALITY 269 MOs/Kg (270-290); CHLORIDE 109 mEq/L (98-107); GLUCOSE 79 MG/DL (70-99); SODIUM LEVEL 139 mEq/L (137-146)
[2016-04-03] MEDS: BUSPIRONE 10 MG TAB PO SCH ×3 (05:07→20:14)
[2016-04-03] MEDS: PANTOPRAZOLE 40 MG TAB PO SCH ×2 (05:07→16:50)
[2016-04-03] MEDS: REGULAR INSULIN 100 UNITS/ML - 3 ML VIAL SQ SCH ×5 (05:35→22:36)
[2016-04-03] MEDS ORDERED: Non-Formulary Medication ITEM (Buspirone Hcl [Buspirone Hcl] 15 MG) PO SCH (06:00)
[2016-04-03] MEDS: Albuterol/Ipratropium Neb 3 ML NEB NEB SCH ×3 (08:18→20:55)
[2016-04-03] MEDS: BUDESONIDE 0.5 MG NEB NEB SCH ×2 (08:19→20:57)
[2016-04-03] MEDS: GLARGINE INSULIN (LANTUS) 100 UNITS/ML PEN SQ SCH ×2 (08:19→20:16)
[2016-04-03] MEDS ORDERED: Non-Formulary Medication ITEM (Rivaroxaban [Xarelto] 20 MG) PO SCH (09:00)
[2016-04-03] MEDS ORDERED: Non-Formulary Medication ITEM (Insulin Glargine 20 UNITS) SQ SCH (09:00)
[2016-04-03] MEDS ORDERED: Non-Formulary Medication ITEM (Budesonide/Formoterol Fumarate [Symbicort 160-4.5 Mcg Inh INH SCH (09:00)
[2016-04-03] MEDS ORDERED: CHOLECALCIFEROL PO SCH (09:00)
[2016-04-03] MEDS ORDERED: Non-Formulary Medication ITEM (Escitalopram Oxalate [Lexapro] 20 MG) PO SCH (09:00)
[2016-04-03] MEDS ORDERED: Non-Formulary Medication ITEM (Omeprazole 20 MG) PO SCH (09:00)
--- NOTE | 2016-04-03 10:56 | DIRPT ---
CLINICAL DATA: Confusion. Altered mental status for 2 days. EXAM: MRI HEAD WITHOUT CONTRAST TECHNIQUE: Multiplanar, multiecho pulse sequences of the brain and surrounding structures were obtained without intravenous contrast. COMPARISON: CT head without contrast 04/02/2016. MRI brain 04/06/2008 FINDINGS: No acute infarct, hemorrhage, or mass lesion is present. Moderate periventricular and subcortical T2 changes bilaterally have progressed since the prior exam. A remote lacunar infarct is again noted in the left thalamus. There are remote lacunar infarcts in the inferior left cerebellum. Dilated perivascular spaces within the basal ganglia have progressed. No new cortical infarcts are present. White matter changes extend into the brainstem. The internal auditory canals are within normal limits. Flow is present in the major intracranial arteries. Bilateral lens replacements are present. The globes and orbits are otherwise intact. The paranasal sinuses and mastoid air cells are clear. The skullbase is within normal limits. Midline sagittal images are unremarkable. IMPRESSION: 1. Interval progression of periventricular and subcortical white matter disease bilaterally. This likely reflects progressive microvascular ischemic change. 2. No acute or subacute intracranial abnormality to explain symptoms over the last 2 days. Electronically Signed By: Michael Ramírez M.D. On: 04/03/2016 10:53
[2016-04-03] MEDS: FENOFIBRATE 145 MG TAB PO SCH (12:37)
[2016-04-03] MEDS: PREGABALIN 50 MG CAP PO SCH ×2 (12:39→20:15)
[2016-04-03] MEDS: ESCITALOPRAM OXALATE 10 MG TAB PO SCH (12:39)
[2016-04-03] MEDS: RIVAROXABAN 10 MG TAB PO SCH (12:39)
[2016-04-03] MEDS: CHOLECALCIFEROL 1000 UNITS TAB PO SCH (12:40)
[2016-04-03] MEDS: EZETIMIBE 10 MG TAB PO SCH (12:40)
[2016-04-03] MEDS: RANOLAZINE 500 MG EXT RELEASE TAB PO SCH ×2 (12:40→20:14)
[2016-04-03] MEDS: PREGABALIN 25 MG CAP PO SCH ×2 (12:40→20:15)
[2016-04-03] MEDS: OXYBUTYNIN 5 MG TAB PO SCH ×2 (12:40→20:15)
[2016-04-03] MEDS: BuPROPion (BID formulation) 100 MG TAB.SR.12H PO SCH (12:40)
--- NOTE | 2016-04-03 17:43 | GENMEDPROG ---
Subjective Note: Patient admitted with acute confusion. Um she had not been eating or drinking or taking any of her meds. She woke up out of her sleep and was found to be acutely confused and brought in. Notes Reviewed: Yes Events from last night noted and discussed with Clinical Staff Current Medication List: Reviewed Currently: Reports: Ambulating. Denies: Cough, Wheezing, BRIGHT, Diarrhea, Nausea and Vomiting, Abdominal Pain DVT Prophylaxis: Yes - Physical Examination Vital Signs and I&O: Last Vital Signs Temp 98.1 F 04/03/16 16:52 Pulse 95 04/03/16 16:52 Resp 18 04/03/16 16:52 BP 116/61 04/03/16 16:52 Pulse Ox 97 04/03/16 16:52 Oxygen Pulse Oxygen Saturation 97 O2 Device Room Air Oxygen Flow Rate Fraction of Inspired Oxygen ( FIO2) Intake & Output 03/31/16 04/01/16 04/02/16 04/03/16 23:59 23:59 23:59 23:59 Intake Total 1150 1410 Output Total 900 Balance 1150 510 Patient's weight 98.997 kg General: Alert, Oriented x3, No acute distress, Well appearing, Well nourished HEENT: Normal (Normocephalic, atraumatic;EOMI.Sclera white, Nares patent, without discharge or bleeding. No oropharyngeal lesions or erythema. Mucous membranes are dry.) Lymphatics: Normal (no adenopathy) Respiratory: Normal - CTA (BBS clear to auscultation without adventitious sounds ) Cardiovascular: Regular rate and rhythm (No bradycardia or tachycardia), Normal S1, No Gallops,Rubs/Murmurs, Normal S2, Good Pedal Pulses (DP pulses 2+ bilaterally) GI: Normal bowel sounds (normal active sounds), Soft (non-distended), Non tender , No hepatospenomegaly, No masses Extremities/Musculoskeletal: Normal pulses (DP pulses 2+ bilaterally) Skin: Warm,Dry and Intact, No rashes, No significant lesion Neurological: Strength at 5/5 X4 ext (Motor 5/5 throughout.), Normal tone, Cranial nerves 3-12 NL ( 2-12 grossly intact.) Lab/DI/Studies Reviewed: Abnormal Lab Results 04/02/16 04/02/16 04/02/16 21:24 21:24 21:35 RBC 3.69 L Hgb Hct MCH 32.7 H RDW 16.7 H MPV 11.0 H Neut % (Auto) 43.4 L Lymph % (Auto) 45.4 H APTT 18.2 L Chloride BUN 19 H Creatinine 1.30 H Estimated GFR (MDRD) 42 L Glucose 100 H POC Capillary Glucose Hemoglobin A1c Calculated Osmolality AST 38 H Alkaline Phosphatase 49 L Urine Ketones Ur Leukocyte Esterase Urine WBC Urine Mucus Urine Opiates Screen 04/02/16 04/02/16 04/03/16 22:00 22:00 03:40 RBC Hgb Hct MCH RDW MPV Neut % (Auto) Lymph % (Auto) APTT Chloride BUN Creatinine Estimated GFR (MDRD) Glucose POC Capillary Glucose Hemoglobin A1c 5.8 H Calculated Osmolality AST Alkaline Phosphatase Urine Ketones 1+ H Ur Leukocyte Esterase Trace H Urine WBC 5-10 H Urine Mucus Mod H Urine Opiates Screen *positive* H 04/03/16 04/03/16 04/03/16 03:40 03:40 16:55 RBC 3.20 L Hgb 10.4 L D Hct 31.3 L MCH 32.5 H RDW 16.2 H MPV Neut % (Auto) Lymph % (Auto) APTT Chloride 109 H BUN 18 H Creatinine 1.20 H Estimated GFR (MDRD) 46 L Glucose POC Capillary Glucose 122 H Hemoglobin A1c Calculated Osmolality 269 L AST Alkaline Phosphatase Urine Ketones Ur Leukocyte Esterase Urine WBC Urine Mucus Urine Opiates Screen EXAM: MRI HEAD WITHOUT CONTRAST TECHNIQUE: Multiplanar, multiecho pulse sequences of the brain and surrounding structures were obtained without intravenous contrast. COMPARISON: CT head without contrast 04/02/2016. MRI brain 04/06/2008 FINDINGS: No acute infarct, hemorrhage, or mass lesion is present. Moderate periventricular and subcortical T2 changes bilaterally have progressed since the prior exam. A remote lacunar infarct is again noted in the left thalamus. There are remote lacunar infarcts in the inferior left cerebellum. Dilated perivascular spaces within the basal ganglia have progressed. No new cortical infarcts are present. White matter changes extend into the brainstem. The internal auditory canals are within normal limits. Flow is present in the major intracranial arteries. Bilateral lens replacements are present. The globes and orbits are otherwise intact. The paranasal sinuses and mastoid air cells are clear. The skullbase is within normal limits. Midline sagittal images are unremarkable. IMPRESSION: 1. Interval progression of periventricular and subcortical white matter disease bilaterally. This likely reflects progressive microvascular ischemic change. 2. No acute or subacute intracranial abnormality to explain symptoms over the last 2 days. Electronically Signed By: Michael Ramírez M.D. On: 04/03/2016 10:53 - Assessment (1) Metabolic encephalopathy Acute G93.41 - METABOLIC ENCEPHALOPATHY Comment/Plan: Patient's symptoms have resolved. I suspect that most of them were due to the fact that she spent days in the bed not eating drinking or taking any of her medications. Her family confirms that. It may be that being off her medications affected her home use stasis and she became confused. 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 Restart home medications. (3) Major depressive disorder with psychotic features Acute F32.3 - MAJOR DEPRESSV DISORD, SINGLE EPSD, SEVERE W PSYCH FEATURES Qualifiers: Active/Remission status: currently active Major depression episode severity : severe Comment/Plan: Continue home medications continue follow-up plan with her mental health provider as scheduled. (4) COPD (chronic obstructive pulmonary disease) Acute J44.9 - CHRONIC OBSTRUCTIVE PULMONARY DISEASE, UNSPECIFIED Qualifiers: COPD type: emphysema Emphysema type: unspecified Qualified Code(s): J43.9 - Emphysema, unspecified Comment/Plan: Continue present plan. (5) Pulmonary thromboembolism Chronic I26.99 - OTHER PULMONARY EMBOLISM WITHOUT ACUTE COR PULMONALE Comment/Plan: Continue treatment with Xarelto. Patient with PE in October of 2015. - Plan MRI is unremarkable doubt acute stroke. Suspect that most of patient's problems are related to being off her medications. Medications have been restarted. Will monitor her 24 hours if stable discharge in a.m.. Medical team conference was held on the patient discussion of diagnosis treatments plans and prognosis as well as disposition. In addition to myself the following team members were present nursing, physical therapy, speech therapy, occupational therapy, case management, social work, nutrition, inventory control coordinator , palliative care, and home health nursing. Input from each discipline was recieved and is incorporated in the plan of care in the medical record as well as in the plans in the progress notes. Disposition Plan: Home in a.m. if stable Case Care Discussed with: Patient, Family, Nursing Staff Education/Counseling Given To: Patient, Family Member Education/Counseling Given Regarding: Diagnosis, Treatment, Prognosis, Follow Up , Disposition Plan Total Time: 45 minutes Critical Care: No Couseling Time (>50% in counseling/coordination): No
[2016-04-03] MEDS ORDERED: TOPIRAMATE 100 MG TAB PO SCH (21:00)
[2016-04-03] MEDS ORDERED: TOPIRAMATE 200 MG PO SCH (21:00)
[2016-04-03] MEDS ORDERED: ATORVASTATIN 80 MG TAB PO SCH (21:00)
[2016-04-04] MEDS: Albuterol/Ipratropium Neb 3 ML NEB NEB SCH ×3 (01:36→13:40)
[2016-04-04 04:36] VITALS: BMI 44.4
[2016-04-04] MEDS: NS 1,000 ML IV SCH ×2 (04:42→08:38)
[2016-04-04] MEDS: PANTOPRAZOLE 40 MG TAB PO SCH (06:04)
[2016-04-04] MEDS: REGULAR INSULIN 100 UNITS/ML - 3 ML VIAL SQ SCH ×2 (06:04→11:14)
[2016-04-04] MEDS: BUSPIRONE 10 MG TAB PO SCH (06:04)
[2016-04-04] MEDS: GLARGINE INSULIN (LANTUS) 100 UNITS/ML PEN SQ SCH (08:28)
[2016-04-04] MEDS: OXYBUTYNIN 5 MG TAB PO SCH (08:29)
[2016-04-04] MEDS: RANOLAZINE 500 MG EXT RELEASE TAB PO SCH (08:29)
[2016-04-04] MEDS: RIVAROXABAN 10 MG TAB PO SCH (08:29)
[2016-04-04] MEDS: BuPROPion (BID formulation) 100 MG TAB.SR.12H PO SCH (08:29)
[2016-04-04] MEDS: EZETIMIBE 10 MG TAB PO SCH (08:29)
[2016-04-04] MEDS: ESCITALOPRAM OXALATE 10 MG TAB PO SCH (08:29)
[2016-04-04] MEDS: FENOFIBRATE 145 MG TAB PO SCH (08:29)
[2016-04-04] MEDS: PREGABALIN 50 MG CAP PO SCH (08:38)
[2016-04-04] MEDS: PREGABALIN 25 MG CAP PO SCH (08:38)
[2016-04-04] MEDS: BUDESONIDE 0.5 MG NEB NEB SCH (09:07)
[2016-04-04] MEDS: CHOLECALCIFEROL 1000 UNITS TAB PO SCH (11:13)
[2016-04-04 11:15] VITALS: BP 140/63; TEMP 97.4
[2016-04-04 11:20] VITALS: PULSE 60
--- NOTE | 2016-04-04 11:23 | PCM.DCS92 ---
- Final/Secondary Discharge Diagnosis (1) Metabolic encephalopathy Acute G93.41 - METABOLIC ENCEPHALOPATHY Present on Admission: Yes Comment: Patient's symptoms have resolved. I suspect that most of them were due to the fact that she spent days in the bed not eating drinking or taking any of her medications. Her family confirms that. It may be that being off her medications affected her home use stasis and she became confused. (2) Type 2 diabetes mellitus with hyperglycemia Acute E11.65 - TYPE 2 DIABETES MELLITUS WITH HYPERGLYCEMIA Present on Admission: Yes with intermediate accountant use E11.65 - Type 2 diabetes mellitus with hyperglycemia; Z79.4 - group home (current) use of insulin Comment: Continue to monitor fingerstick blood glucoses. Restart home medications. (3) Major depressive disorder with psychotic features Acute F32.3 - MAJOR DEPRESSV DISORD, SINGLE EPSD, SEVERE W PSYCH FEATURES Present on Admission: Yes currently active severe Comment: Continue home medications continue follow-up plan with her mental health provider as scheduled. (4) COPD (chronic obstructive pulmonary disease) Acute J44.9 - CHRONIC OBSTRUCTIVE PULMONARY DISEASE, UNSPECIFIED Present on Admission: Yes emphysema unspecified J43.9 - Emphysema, unspecified Comment: Continue present plan. (5) Pulmonary thromboembolism Chronic I26.99 - OTHER PULMONARY EMBOLISM WITHOUT ACUTE COR PULMONALE Present on Admission: Yes Comment: Continue treatment with Xarelto. Patient with PE in October of 2015. Discharge Disposition: Home Discharge Condition: Improved Cognitive Discharge Status: Unimpaired Fuctional Discharge Status: Independent Physician Follow up/Referrals: Matti Arellano MD [Primary Care Provider] - One Week O2 Device: Room Air Diet at Discharge: As Tolerated, Heart Healthy, Diabetic Activity: No Restrictions Call Office For: Worsening Symptoms, Fever over 100.5, Pain Uncontrolled By Meds - DC Summary Notes Hospital Course Note:: Discharge summary on patient named KALIN FARLEY admitted to [facility] on 04/02/16 by Jake Houser MD. Date of discharge is []. Pleasant 60-year-old female who suffers from bouts of depression. She has spent several days in bed not eating drinking or taking any of her medications. She was sleeping most of the time. When she woke up she was confusing came into the emergency department per her family. They found that she did not recognize her grandchildren. Her medications were restarted in the morning after admission she appeared to be back to normal. We monitored her another 24 hours on her medications and she has done very well. Today she looks very good and is very interested in going home. Her symptoms have completely resolved. At this point she has reached maximum benefit of hospitalization. She is stable for discharge home. I discussed with her and her family the importance of taking her medications every day the importance of getting up out of bed and having a schedule or routine every day so that she has something to look forward to. She will follow up with Dr. Arellano in 1 week. Total Time: 45 minutes Code: 52346 (>30min.) - Physical Exam Vital Signs: Last Vital Signs Temp 97.5 F 04/04/16 08:25 Pulse 59 L 04/04/16 08:35 Resp 18 04/04/16 08:25 BP 137/67 04/04/16 08:25 Pulse Ox 100 04/04/16 08:25 Oxygen Pulse Oxygen Saturation 100 O2 Device Room Air Oxygen Flow Rate Fraction of Inspired Oxygen ( FIO2) Constitutional: Alert (Awake), Confused (SLUGGISH TO RESPOND) Oriented to: Person, Place - HEENT Head: Normal ( normocephalic) Eye: Normal (PERRL, EOMI, Sclera white) Oropharynx: Normal (Pharynx:Moist without exudate,Gums-no swelling) Tympanic Membrane: Normal ENT EAC: Normal TMJ: Normal Nose: No Symptoms Reported (septum midline) - Respiratory/Cardiovascular Respiratory: Normal - CTA (BBS clear to auscultation without adventitious sounds ) - GI Auscultation: Normal (NABS) Palpation: Normal (Soft,No rebound or guarding, non distended) Tenderness: Non tender Moya's Sign: Negative - Musculoskeletal Back: Normal (Non-Tender) Extremities: Normal (Normal tone, Pulses 2+ No cyanosis or edema, FROM) - Integumentary Lymphatics: Normal (no adenopathy) - Neurologic Memory Impaired: Unable to Test Cerebellar: Normal Mood Description: Flat Perception: Normal - Other Exam Other Exam Findings: Abnormal Lab Results 04/03/16 04/03/16 04/03/16 16:55 19:43 23:35 POC Capillary Glucose 122 H 130 H 136 H 04/04/16 04/04/16 04:43 11:13 POC Capillary Glucose 103 H 118 H
== END 2016-04-04 14:17 | disposition home or self-care (01) | DRG 71 ==
LOC: ED 19:37 → PCU 23:34
PROVIDERS: ADMIT Internal Medicine; ATTEND Hospitalist
DX: G93.41 Metabolic encephalopathy (principal); F32.3 Major depressive disorder, single episode, severe with psychotic features; I27.82 Chronic pulmonary embolism; E11.65 Type 2 diabetes mellitus with hyperglycemia; I50.9 Heart failure, unspecified; J44.9 Chronic obstructive pulmonary disease, unspecified; I25.10 Atherosclerotic heart disease of native coronary artery without angina pectoris; I48.91 Unspecified atrial fibrillation; I10 Essential (primary) hypertension; I25.2 Old myocardial infarction; Z98.61 Coronary angioplasty status; E78.00 Pure hypercholesterolemia, unspecified; J45.909 Unspecified asthma, uncomplicated; K21.9 Gastro-esophageal reflux disease without esophagitis; M19.90 Unspecified osteoarthritis, unspecified site; Z86.73 Personal history of transient ischemic attack (TIA), and cerebral infarction without residual deficits; F41.8 Other specified anxiety disorders; Z88.0 Allergy status to penicillin; Z88.5 Allergy status to narcotic agent; Z88.8 Allergy status to other drugs, medicaments and biological substances; Z91.040 Latex allergy status; Z79.4 Long term (current) use of insulin; Z79.899 Other long term (current) drug therapy
CPT/HCPCS: 36415; 70450; 70551; 71010; 80048; 80053; 80307; 81001; 82043; 82962; 83036; 84443; 84484; 85025; 85027; 85610; 85651; 85730; 87086; 87641; 87804; 93005; 94640; 96361; 96365; 96372; 97161; 99284; J1956; J3490; J7620